=== PATIENT | male | born 2000 | race African-American/Black ===

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

== ENCOUNTER 2025-03-08 15:26 | Emergency (ER) | payer MEDICAID, OTHER ==
[~2025-03-08] VITALS: Ht 177.8 cm; Wt 74.0 kg
[~2025-03-08 15:26] MED LIST: CHOL500010 PO
[2025-03-08 15:28] VITALS: O2SAT 99
[2025-03-08] MEDS: BACLOFEN 10MG TABLET PO ONE (15:53)
[2025-03-08] MEDS: LEVETIRACETAM 500MG PREMIX 100 ML IV ONE (15:53)
[2025-03-08 16:12] LABS: BASOPHILS % 0.5 % (0.0-2.0); EOSINOPHILS % 0.7 % (0.0-5.0); HEMATOCRIT. 42.7 % (42.0-52.0); HEMOGLOBIN. 14.2 g/dL (14.0-18.0); LYMPHOCYTES % 17.2 % (20.0-50.0); MEAN CORPUSCULAR HEMOGLOBIN 28.7 pg (28.0-32.0); MEAN CORPUSCULAR HGB CONC 33.2 g/dL (31.0-37.0); MEAN CORPUSCULAR VOLUME 86.4 fL (80.0-94.0); MEAN PLATELET VOLUME 8.6 fl (7.4-10.4); MONOCYTES % 5.5 % (2.0-8.0); NEUTROPHILS % 76.1 % (40.0-76.0); PLATELET 159 x1000/uL (130-400); RED BLOOD CELL COUNT 4.94 mill/uL (4.7-6.1); WHITE BLOOD COUNT 6.4 x1000/uL (4.5-11.0)
[2025-03-08 16:21] LABS: CHLORIDE 103 mEq/L (98-107); POTASSIUM 3.8 mEq/L (3.5-5.1); SODIUM 139 mEq/L (136-145)
[2025-03-08 16:22] LABS: CALCIUM 9.4 mg/dL (8.7-10.4); CARBON DIOXIDE 23 mEq/L (21-32)
[2025-03-08 16:27] LABS: GLUCOSE 94 mg/dL (70-105); UREA NITROGEN BLOOD 19 mg/dL (9-23)
[2025-03-08 16:28] LABS: ETHANOL BLOOD < 10 mg/dL (<10)
[2025-03-08 16:41] LABS: *AMPHETAMINES SCREEN URINE NEGATIVE (NEGATIVE); *BARBITURATES SCREEN URINE NEGATIVE (NEGATIVE); *BENZODIAZEPINES SCREEN URINE NEGATIVE (NEGATIVE); *COCAINE SCREEN URINE NEGATIVE (NEGATIVE); CANNABINOID URINE SCREEN NEGATIVE (NEGATIVE); ECSTASY MDMA SCREEN URINE NEGATIVE (NEGATIVE); METHADONE URINE SCREEN NEGATIVE (NEGATIVE); OPIATES URINE SCREEN NEGATIVE (NEGATIVE); PHENCYCLIDINE URINE SCREEN NEGATIVE (NEGATIVE)
[2025-03-08] MEDS ORDERED: BACL-141 MT (16:58)
[2025-03-08] MEDS ORDERED: KEPP500 MT (16:58)
[2025-03-08 17:10] VITALS: BP 114/68; PULSE 87; RESP 18; TEMP 36.7; O2SAT 99
== END 2025-03-08 17:10 | disposition home or self-care (01) ==
LOC: ER 15:26
DX: G40.909 Epilepsy, unspecified, not intractable, without status epilepticus (principal)
CPT/HCPCS: 80305; 80048; 80320; 83735; 85025; 36415; 96365; 99284; J1953; Z7610 ×2; A4606; G0480